=== PATIENT | female | born 1990 | race American Indian/Alaskan Native ===

== ENCOUNTER 2020-09-01 12:44 | Outpatient (CLI) | payer MEDICAID, OTHER ==
--- NOTE | 2020-09-01 15:25 | XRay Report ---
ABDOMEN 1 VIEW INDICATION / CLINICAL INFORMATION: MISPLACED IUD. COMPARISON: None available. FINDINGS: TUBES / LINES: None. BOWEL GAS PATTERN: No significant abnormality. FREE AIR / EXTRALUMINAL GAS: None seen. ADDITIONAL FINDINGS: An IUD projects over the midline of the pelvis. IMPRESSION: Expected radiographic positioning of the IUD. Please correlate with the clinical findings. No other a cute abnormality. Signer Name: Shon Bryant MD Signed: 09/01/2020 3:21 PM Workstation Name: [id number]
== END 2020-09-01 12:45 | disposition home or self-care (01) ==
LOC: XRAY 12:44
PROVIDERS: ATTEND Obstetrics & Gynecology
DX: Z30.431 Encounter for routine checking of intrauterine contraceptive device (principal); T19.3XXA Foreign body in uterus, initial encounter; X58.XXXA Exposure to other specified factors, initial encounter
CPT/HCPCS: 74018

== ENCOUNTER 2021-07-03 05:25 | Inpatient (IN) | payer MEDICAID ==
[2021-07-03] MEDS ORDERED: fentaNYL 100 MCG/2 ML INJ IV PRN (05:37)
[2021-07-03] MEDS ORDERED: AMPICILLIN/NS 2 GM/100 ML 2 GM/100 ML BAG IV ONE ×2 (05:37)
[2021-07-03] MEDS ORDERED: MINERAL OIL 30 ML ORAL LIQD PO PRN (05:37)
[2021-07-03] MEDS ORDERED: miSOPROStol 200 MCG TAB PR PRN (05:37)
[2021-07-03] MEDS ORDERED: METHYLERGONOVINE MALEATE 0.2 MG/ML VIAL IM PRN (05:37)
[2021-07-03] MEDS ORDERED: BUTORPHANOL 2 MG/1 ML INJ IV PRN (05:37)
[2021-07-03] MEDS ORDERED: ACETAMINOPHEN 325 MG TAB PO PRN ×2 (05:37→07:05)
[2021-07-03] MEDS ORDERED: ONDANSETRON 4 MG/2 ML INJ IV PRN (05:37)
[2021-07-03] MEDS ORDERED: LOPERAMIDE 2 MG CAP PO PRN (05:37)
[2021-07-03] MEDS ORDERED: TERBUTALINE 1 MG/1 ML INJ SUB-Q PRN (05:37)
[2021-07-03] MEDS ORDERED: LIDOCAINE (2%) 20 MG/1 ML VIAL 20 ML MDV INFILTRATI ONE (05:37)
[2021-07-03] MEDS ORDERED: CARBOPROST TROMETHAMINE 250 MCG/1 ML INJ IM PRN (05:37)
[2021-07-03] MEDS ORDERED: OXYTOCIN 10 UNIT/1 ML INJ IM PRN (05:37)
[2021-07-03] MEDS ORDERED: ePHEDrine SULFATE 50 MG/1 ML INJ IV PRN (05:37)
[2021-07-03] MEDS ORDERED: LACTATED RINGERS 1,000 ML ONE (05:38)
[2021-07-03] MEDS ORDERED: LACTATED RINGERS 1,000 ML IV SCH (05:45)
--- NOTE | 2021-07-03 05:57 | History and Physical Report ---
History of Present Illness Date of examination: 07/03/21 Date of admission: 07/03/2021 Chief complaint: Contractions History of present illness: 31 year old female presents in active labor. Patient states her contractions began at 04:00 this morning. Patient denies LOF or VB. Patient receives care at [facility]. No records available. Patient self reports her EDC to be 07/09/21. Reports that she is GBS positive. labs were drawn upon admission. 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 denies: smoking, alcohol abuse, prescription drug abuse, IV drug use - Obstetrical History Expected Date of Delivery: 07/09/21 Actual Gestation: 39 Week(s) 1 Day(s) : 4 Para: 3 Hx # Term Pregnancies: 3 Number of Pregnancies: 0 Spontaneous Abortions: 0 Induced : 0 Number of Living Children: 3 Medications and Allergies Allergies Allergy/AdvReac Type Severity Reaction Status Date / Time No Known Allergies Allergy Verified 09/30/14 01:27 Home Medications Medication Instructions Recorded Confirmed Last Taken Type No Known Home Medications [No 09/30/14 09/30/14 Unknown History Reported Home Medications] Active Meds: Active Medications Acetaminophen (Acetaminophen 325 Mg Tab) 650 mg PO Q4H PRN PRN Reason: Pain, Mild (1-3) Butorphanol Tartrate (Butorphanol 2 Mg/1 Ml Inj) 1 mg IV Q2H PRN PRN Reason: Pain, Moderate(4-6) LABOR PAIN Carboprost Tromethamine (Carboprost Tromethamine 250 Mcg/1 Ml Inj) 250 mcg IM ONCE PRN PRN Reason: Uterine Bleeding Ephedrine Sulfate (Ephedrine Sulfate 50 Mg/1 Ml Inj) 10 mg IV Q2M PRN PRN Reason: Hypotension Fentanyl (Fentanyl 100 Mcg/2 Ml Inj) 100 mcg IV Q2H PRN PRN Reason: Pain,Severe (7-10) LABOR PAIN Lactated Ringer's (Lactated Ringers) 1,000 mls @ 125 mls/hr IV DIRECT TARI Oxytocin/Sodium Chloride (Pitocin/Ns 30 Unit/500ml) 30 units in 500 mls @ 40 mls/hr IV TITR TARI; Protocol Ampicillin Sodium (Ampicillin/Ns 2 Gm/100 Ml) 2 gm in 100 mls @ 100 mls/hr IV ONCE ONE; Protocol Stop: 07/03/21 06:36 Ampicillin Sodium (Ampicillin/Ns 1 Gm/50 Ml) 1 gm in 50 mls @ 100 mls/hr IV Q4H TARI; Protocol Lidocaine (Lidocaine (2%) 20 Mg/1 Ml Vial 20 Ml Mdv) 20 ml INFILTRATI ONCE ONE Stop: 07/03/21 05:38 Loperamide HCl (Loperamide 2 Mg Cap) 2 mg PO ONCE PRN PRN Reason: give with Hemabate Methylergonovine Maleate (Methylergonovine Maleate 0.2 Mg/Ml Vial) 0.2 mg IM ONCE PRN PRN Reason: Uterine Bleeding Mineral Oil (Mineral Oil 30 Ml Oral Liqd) 30 ml PO QHS PRN PRN Reason: Constipation Misoprostol (Misoprostol 200 Mcg Tab) 800 mcg NV ONCE PRN PRN Reason: Uterine Bleeding Ondansetron HCl (Ondansetron 4 Mg/2 Ml Inj) 4 mg IV Q8H PRN PRN Reason: Nausea And Vomiting Oxytocin (Oxytocin 10 Unit/1 Ml Inj) 10 unit IM ONCE PRN PRN Reason: Uterine Bleeding Terbutaline Sulfate (Terbutaline 1 Mg/1 Ml Inj) 0.25 mg SUB-Q ONCE PRN PRN Reason: Hyperstimulation/Hypertonicity Review of Systems All systems: negative (contractions) - Vital Signs Vital signs: Vital Signs Pulse Pulse Ox 87 100 07/03/21 05:42 07/03/21 05:42 Temp Pulse Resp BP Pulse Ox 92 H 119/70 99 07/03/21 05:47 07/03/21 05:43 07/03/21 05:47 - Physical Exam Abdomen: Positive: normal appearance, soft. Negative: distention, tenderness, guarding, rigidity Genitourinary (Female): Positive: normal external genitalia, normal perenium. Negative: perineal/vulvar lesions Vagina: Positive: normal moisture Uterus: Positive: enlarged. Negative: tender Anus/Rectum: Positive: normal perianal skin Extremities: Positive: normal. Negative: tenderness, edema - Obstetrical FHR: category 1 Uterine Contraction Monitor Mode: External Cervical Dilatation: 7 Cervical Effacement Percentage: 70 station: -1 Uterine Contraction Pattern: Regular Uterine Contraction Intensity: Strong/Firm Results All other labs normal. Assessment and Plan A: at 39 weeks, 1 day gestation. Active labor. GBS positive. No records available. P: Admit. EFM. GBS prophylaxis. Anticipate vaginal . Request/obtain records.
[2021-07-03] MEDS ORDERED: OXYTOCIN DRIP 30 UNITS/500 ML BAG IV SCH (06:00)
[2021-07-03 06:04] LABS: Hematocrit 33.5 % (30.3-42.9); Hemoglobin 11.4 gm/dl (10.1-14.3); Mean Corpuscular HGB Conc 34 % (30-34); Mean Corpuscular Volume 82 fl (79-97); Platelet Count 211 K/mm3 (140-440); Red Blood Count 4.07 M/mm3 (3.65-5.03); Red Cell Distribution Width 12.9 % (13.2-15.2)
[2021-07-03 06:26] LABS: Hepatitis C Virus Antibody Non-Reactive (NonReactive)
[2021-07-03] MEDS ORDERED: WITCH HAZEL/ GLYCERIN PAD TP PRN (07:05)
[2021-07-03] MEDS ORDERED: HYDROcodone/ACETAMINOPHEN 5-325 MG TAB PO PRN (07:05)
[2021-07-03] MEDS ORDERED: LANOLIN/ZINC/DIMETHICONE (LANSINOH) 7 GM TP PRN (07:05)
[2021-07-03] MEDS ORDERED: MAGNESIUM HYDROXIDE (MOM) ORAL LIQD UDC PO PRN (07:05)
--- NOTE | 2021-07-03 07:15 | Procedure Note ---
OB Delivery Note - Delivery Date of Delivery: 07/03/21 Surgeon: RASHIDA CHAVEZ Estimated blood loss: other (600 cc) - Vaginal Delivery presentation: vertex Delivery position: OA Intrapartum events: meconium, precipitous labor- <3hr, hemorrhage Delivery induction: none Delivery augmentation: rupture of membranes Delivery monitor: external FHT, external uterine Route of delivery: Delivery placenta: spontaneous Delivery cord: 3 umbilical vessels Episiotomy: none Delivery laceration: 2nd degree Delivery repair: vicryl Anesthesia: local Delivery comments: Spontaneous vaginal delivery at 06:22 of liveborn female infant weighing 3.12 kg over 2nd degree perineal laceration with apgars of 8/9. Meconium stained amniotic fluid; NICU present for delivery. was atraumatic and baby was vigorous at . Baby was placed skin to skin with mom immediately after . Spontaneous cry and respirations. Baby was suctioned with bulb syringe and dried with warm blankets. 3 vessel cord was double clamped and cut and baby was taken to radiant warmer for further suctioning. Cord blood obtained. Spontaneous delivery of intact meconium stained placenta and membranes at 06:29 EBL 600 cc. IV Pitocin, rectal Cytotec and IM Methergine given for atony and to help stop bleeding. Bleeding subsided and fundus was found to be firm and midline at 1 FB above umbilicus. 2nd degree perineal laceration repaired with 2- 0 vicryl with lidocaine local. No other lacerations noted. Vaginal sweep negative. Sponge count correct. Placenta sent to pathology. Mother and baby stable. H/H ordered.
[2021-07-03] MEDS: IBUPROFEN 600 MG TAB PO SCH ×3 (08:00→23:59)
[2021-07-03] MEDS ORDERED: AMPICILLIN/NS 1 GM/50 ML 1 GM/50 ML BAG IV SCH (10:00)
[2021-07-03 10:32] LABS: Hemoglobin 10.2 gm/dl (10.1-14.3)
[2021-07-03] MEDS: BENZOCAINE/MENTHOL 20/0.5% TOP SPRAY 56 GM TP PRN ×2 (19:21→20:21)
[2021-07-03] MEDS: WITCH HAZEL/ GLYCERIN PAD TP PRN (19:21)
[2021-07-03] MEDS: FERROUS SULFATE 325 MG TAB PO SCH (23:58)
[2021-07-03] MEDS: DOCUSATE SODIUM 100 MG CAP PO SCH (23:59)
[2021-07-04] MEDS: IBUPROFEN 600 MG TAB PO SCH ×4 (05:45→23:02)
[2021-07-04] MEDS: DOCUSATE SODIUM 100 MG CAP PO SCH ×2 (11:40→22:14)
[2021-07-04] MEDS: FERROUS SULFATE 325 MG TAB PO SCH ×2 (11:40→22:14)
[2021-07-04] MEDS: WITCH HAZEL/ GLYCERIN PAD TP PRN (11:46)
--- NOTE | 2021-07-04 13:05 | Progress Note ---
Assessment and Plan A: day 1 S/P . hemorrhage at time of delivery. Anemia, on oral iron supplementation. P: Stat CBC and CMP. Pelvic US. Continue oral iron supplementation. Advised patient to get assistance while ambulating to bathroom. Subjective - Subjective Date of service: 07/04/21 Principal diagnosis: day 1 S/P Interval history: Patient reports mild dizziness while showering this morning. Feels fine now. Patient reports moderate amount of lochia; denies any heavy bleeding. Patient reports: appetite normal, voiding normally, pain well controlled, flatus, ambulating normally, no nauseated : doing well Objective - Vital Signs Latest vital signs: Vital Signs Temp Pulse Resp BP BP Pulse Ox Pulse Ox 07/04/21 11:30 100 07/04/21 08:05 97.9 F 72 18 97/62 98 07/04/21 06:45 18 07/04/21 05:45 18 07/04/21 00:59 18 07/04/21 00:39 98.0 F 81 20 104/62 98 07/03/21 23:59 18 07/03/21 20:00 100 07/03/21 16:00 100 07/03/21 15:09 98.0 F 88 18 112/70 99 07/03/21 14:00 100 Intake and Output 07/03/21 07/04/21 07/04/21 23:59 07:59 15:59 Intake Total 240 720 Output Total 200 Balance 40 720 Intake: Oral 240 240 Intake, Free Water 480 Output: Urine 200 Void 200 Other: Total, Intake Amount 240 240 Total, Output Amount 200 # Voids Void 1 1 1 - Exam Cardiovascular: Present: Regular rate Lungs: Present: Clear to auscultation Abdomen: Present: normal appearance, soft, normal bowel sounds. Absent: distention, tenderness, guarding, rigidity Uterus: Present: normal, firm, fundal height below umbilicus (FH at 1 FB below umbilicus). Absent: bogginess, tenderness Extremities: Absent: tenderness, edema
--- NOTE | 2021-07-04 14:01 | Ultrasound Report ---
US pelvic limited INDICATION / CLINICAL INFORMATION: history of hemorrhage. COMPARISON: None available. FINDINGS: Endometrial echo complex measures 5 mm. No endometrial fluid collections are seen. No uterine lesions are identified. IMPRESSION: 1. No sonographic evidence of retained products. Signer Name: Dong Doll MD Signed: 07/04/2021 1:56 PM Workstation Name: [id number]
[2021-07-04 18:31] LABS: Basophils % (Auto) 0.4 % (0.0-1.8); Eosinophils # (Auto) 0.3 K/mm3 (0.0-0.4); Hematocrit 29.9 % (30.3-42.9); Hemoglobin 10.3 gm/dl (10.1-14.3); Lymphocytes # (Auto) 2.3 K/mm3 (1.2-5.4); Lymphocytes % (Auto) 23.1 % (13.4-35.0); Mean Corpuscular HGB Conc 35 % (30-34); Mean Corpuscular Volume 82 fl (79-97); Monocytes # (Auto) 0.7 K/mm3 (0.0-0.8); Monocytes % (Auto) 6.8 % (0.0-7.3); Platelet Count 239 K/mm3 (140-440); Red Blood Count 3.65 M/mm3 (3.65-5.03); Red Cell Distribution Width 12.6 % (13.2-15.2)
[2021-07-04 18:55] LABS: Alanine Aminotransferase 6 units/L (7-56); Albumin 3.4 g/dL (3.9-5); BUN/Creatinine Ratio 15; Blood Urea Nitrogen 12 mg/dL (7-17); Calcium 8.9 mg/dL (8.4-10.2); Hemolysis Index 0
[2021-07-05] MEDS: IBUPROFEN 600 MG TAB PO SCH (06:30)
--- NOTE | 2021-07-05 06:50 | Progress Note ---
Assessment and Plan A: day 2 S/P with hemorrhage. Anemia, on oral iron supplementation. P: Discharge patient home today. Discussed with patient discharge instructions and warning signs. Advised patient to take her vitamins and iron supplements at home. Advised patient to avoid intercourse, lifting, heavy housework, driving, tub baths (patient may take showers). Advised patient to follow up at [facility] office in 6 weeks. Patient voiced understanding of all instructions. Subjective - Subjective Date of service: 07/05/21 Principal diagnosis: day 2 S/P Interval history: Patient denies dizziness. Patient reports small amount of lochia. States pain is well controlled. Voiding without difficulty. Patient reports: appetite normal, voiding normally, pain well controlled, flatus, ambulating normally, no dizzy ambulation, no nauseated [place]: doing well Objective - Vital Signs Latest vital signs: Vital Signs Temp Pulse Resp BP BP Pulse Ox Pulse Ox 07/05/21 06:28 98 07/05/21 03:25 98 07/05/21 01:30 98 07/04/21 23:00 98 07/04/21 22:15 98 07/04/21 22:14 98 07/04/21 20:05 98 07/04/21 15:44 97.9 F 88 18 113/71 100 07/04/21 11:30 100 07/04/21 08:05 97.9 F 72 18 97/62 98 Intake and Output 07/04/21 07/04/21 07/05/21 15:59 23:59 07:59 Intake Total 240 Balance 240 Intake: Oral 240 Other: Total, Intake Amount 240 # Voids Void 1 - Exam Narrative Exam: Perineal stitches intact; no perineal swelling or bruising noted. Cardiovascular: Present: Regular rate Lungs: Present: Clear to auscultation Abdomen: Present: normal appearance, soft, normal bowel sounds. Absent: distention, tenderness, guarding, rigidity Uterus: Present: normal, firm, fundal height below umbilicus (FH at U-1). Absent: bogginess, tenderness Extremities: Absent: tenderness, edema - Labs Labs: Abnormal lab results 07/04/21 07/04/21 Range/Units 18:02 18:02 Hct 29.9 L (30.3-42.9) % MCHC 35 H (30-34) % RDW 12.6 L (13.2-15.2) % Sodium 136 L (137-145) mmol/L ALT 6 L (7-56) units/L Albumin 3.4 L (3.9-5) g/dL
--- NOTE | 2021-07-05 06:56 | Discharge Summary ---
Providers - Providers Date of Admission: 07/03/21 05:37 Date of discharge: 07/05/21 Attending physician: SELAM KAM Primary care physician: SELAM KAM Hospitalization Reason for admission: active labor Delivery: Laceration: 2nd degree Other procedures: none Discharge diagnosis: IUP at term delivered baby: female Pertinent studies: Labs Hospital course: Stable hospital course. Condition at discharge: Good Disposition: 01 HOME / SELF CARE / HOMELESS - Discharge Diagnoses (1) Term delivered Status: Acute (2) Anemia Status: Acute Plan - Provider Discharge Summary Activity: routine, no sex for 6 weeks, no heavy lifting 4 weeks, no strenuous exercise Diet: routine Instructions: routine Additional instructions: Continue taking your vitamins and iron supplements at home. Follow up at [facility] office in 6 weeks. Call your doctor immediately for: * Fever > 100.5 * Heavy vaginal bleeding ( >1 pad per hour) * Severe persistent headache * Shortness of breath * Reddened, hot, painful area to leg or breast - Follow up plan Follow up: RASHIDA CHAVEZ CNM [Advanced Practice Nurse] - 7 Days
[2021-07-05 09:59] VITALS: BP 105/71
== END 2021-07-05 16:30 | disposition home or self-care (01) | DRG 774 ==
LOC: TRG 05:25 → LD 05:37 → APU 05:37 → TRG 05:37 → LD 05:40 → OB 08:15
PROVIDERS: ADMIT Obstetrics & Gynecology; ATTEND Obstetrics & Gynecology
PROC: 10E0XZZ Delivery of Products of Conception, External Approach (ICD-10-PCS; principal; 2021-07-03)
PROC: 0KQM0ZZ Repair Perineum Muscle, Open Approach (ICD-10-PCS; 2021-07-03)
PROC: 3E0P7GC Introduction of Other Therapeutic Substance into Female Reproductive, Via Natural or Artificial Opening (ICD-10-PCS; 2021-07-03)
DX: O99.824 Streptococcus B carrier state complicating childbirth (principal); O72.1 Other immediate postpartum hemorrhage; Z37.0 Single live birth; O70.1 Second degree perineal laceration during delivery; Z20.822 Contact with and (suspected) exposure to COVID-19; Z3A.39 39 weeks gestation of pregnancy; O90.81 Anemia of the puerperium; O77.0 Labor and delivery complicated by meconium in amniotic fluid; O62.3 Precipitate labor
CPT/HCPCS: 36415; 76857; 80053; 85014; 85018; 85025; 85027; 86592; 86706; 86762; 86803; 86850; 86900; 86901; 87806; 88307; G0378; J0290; J2210; J3010; J7120; U0003